=== PATIENT | female | born 1960 | race Caucasian/White ===

== ENCOUNTER → 2018-10-04 | Outpatient (CLI) | payer OTHER | LOC: CAT 08:22 | DX: J84.10 Pulmonary fibrosis, unspecified (principal); J98.4 Other disorders of lung ==

== ENCOUNTER → 2019-02-04 | Outpatient (CLI) | payer OTHER | LOC: CAT 08:28 | DX: J98.4 Other disorders of lung (principal); D17.79 Benign lipomatous neoplasm of other sites; F41.8 Other specified anxiety disorders; F17.210 Nicotine dependence, cigarettes, uncomplicated; Z82.49 Family history of ischemic heart disease and other diseases of the circulatory system; Z83.3 Family history of diabetes mellitus; Z80.1 Family history of malignant neoplasm of trachea, bronchus and lung; Z81.8 Family history of other mental and behavioral disorders; Z88.8 Allergy status to other drugs, medicaments and biological substances ==

== ENCOUNTER → 2021-09-27 | Outpatient (CLI) | payer OTHER | LOC: PET 09:33 | PROVIDERS: ATTEND Internal Medicine | DX: J98.59 Other diseases of mediastinum, not elsewhere classified (principal); J84.10 Pulmonary fibrosis, unspecified; R91.8 Other nonspecific abnormal finding of lung field ==

== ENCOUNTER → 2021-11-05 | Outpatient (CLI) | payer OTHER ==
[~2021-11-05] MED LIST: BRINTELLIX20 MG PO; CLARITIN10 MG PO; CLONAZEPAM 1 MG1 M1 PO; NEXIUM40 MG PO; PROAIR HFA8.5 GM INH; TYLENOL EXTRA500 MG PO; VITAMIN D3125 MC2 PO; WOMEN'S 50 PLU1 EAC1 PO; ZYRTEC10 MG PO
[2021-11-05 13:09] LABS: ABSOLUTE NEUTROPHILS 4.3 thou/uL (1.4-8.2); HEMOGLOBIN 13.3 gm/dL (12.0-15.0); LYMPHOCYTES 39.1 % (24.0-44.0); MCH 30.6 pg (26.0-34.0); MCHC 33.2 g/dL (28.0-37.0); MCV 92.3 fL (80.0-100.0); MONOCYTES 4.2 % (1.0-8.0); PLATELET COUNT 350 thou/uL (150-400); POLYS 54.7 % (36.0-66.0); RBC 4.33 mil/uL (4.20-5.00); RDW 13.8 % (10.5-14.5); WBC 7.9 thou/uL (4.0-11.0)
[2021-11-05 13:21] LABS: URINE BILIRUBIN NEGATIVE (Negative); URINE BLOOD NEGATIVE (Negative); URINE CLARITY CLEAR; URINE COLOR YELLOW; URINE GLUCOSE-RANDOM* NEGATIVE (Negative); URINE KETONES NEGATIVE (Negative); URINE LEUKOCYTES-REFLEX NEGATIVE (Negative); URINE NITRITE-REFLEX NEGATIVE (Negative); URINE PROTEIN (DIPSTICK) NEGATIVE (Negative); URINE SPECIFIC GRAVITY >= 1.030 (1.005-1.035); URINE UROBILINOGEN 0.2 E.U./dl (0.2-1.0)
[2021-11-05 13:24] LABS: APTT 26.7 Seconds (24.5-32.8); INR 1.01
[2021-11-05 13:27] LABS: ALBUMIN 4.2 g/dL (3.4-5.0); CALCIUM 9.7 mg/dL (8.5-10.1); CREATININE 0.8 mg/dL (0.6-1.0); POTASSIUM 3.9 mmol/L (3.5-5.1); TOTAL BILIRUBIN 0.4 mg/dL (0.2-1.0); TOTAL PROTEIN 7.7 g/dL (6.4-8.2)
--- NOTE | 2021-11-05 17:25 | EKG ---
[address] [address] ELECTROCARDIOGRAM REPORT Name: DENISE BUCK Room #: REG GISELA Keita#: [id number] Admission: 11/05/21 Attend Phys: Carson Peace MD Discharge: Date of : 64 Report #: [id number] [facility] Test Date: 2021-11-05 Test Time: 13:02:04 Pat Name: DENISE BUCK Department: Room: Gender: F Photographic Process Worker: MIMA SOLER : 1960 Requested By: Carson Peace Order Number: [id number] MD: Michael Enamorado Measurements Intervals [place] Rate: 60 P: 53 FL: 136 QRS: 62 QRSD: 104 T: 41 QT: 421 QTc: 421 Interpretive Statements Sinus rhythm No significant abnormality No previous ECG available for comparison Electronically Signed On 11-05-2021 17:25:19 DEICER KIT ASSEMBLER by Michael Enamorado [email or web address] <ELECTRONICALLY SIGNED> By: Michael Enamorado MD, [facility] 11/05/21 1725 1302 1302 Michael Enamorado MD, FACC /EPI
== END ==
LOC: PAC 11:22
PROVIDERS: ATTEND Surgery Vascular Surgery
DX: Z01.818 Encounter for other preprocedural examination (principal); R07.9 Chest pain, unspecified

== ENCOUNTER → 2021-11-15 | Outpatient (CLI) | payer OTHER | LOC: LAB 13:53 | PROVIDERS: ATTEND Student in an Organized Health Care Education/Training Program | DX: Z01.812 Encounter for preprocedural laboratory examination (principal); Z20.822 Contact with and (suspected) exposure to COVID-19 ==

== ENCOUNTER 2021-11-18 06:22 | Inpatient (IN) | payer OTHER ==
[2021-11-18] VITALS (12 sets, daily range): BP systolic 90–134; BP diastolic 44–62
[~2021-11-18] VITALS: Ht 167.6 cm; Wt 61.7 kg
--- NOTE | 2021-11-18 15:15 | EKG ---
[place] [address] [facility] [address] [place] [address] ELECTROCARDIOGRAM REPORT Name: DENISE BUCK Room #: 251-P ADM IN M.R.#: [id number] Admission: 11/18/21 Attend Phys: Carson Peace MD Discharge: Date of : 64 Report #: [id number] [facility] Test Date: 2021-11-18 Test Time: 10:38:53 Pat Name: DENISE BUCK Department: Room: 251 Gender: F Facility Coordinator: DIPAK : 1960 Requested By: Mary De Order Number: [id number] : Adebayo Marx Measurements Intervals [place] Rate: 41 P: 54 NE: 164 QRS: 73 QRSD: 93 T: 52 QT: 510 QTc: 422 Interpretive Statements Sinus bradycardia Compared to ECG 11/05/2021 13:02:04 Sinus rhythm no longer present Electronically Signed On 11-18-2021 15:15:23 SENIOR SOFTWARE ANALYST by Adebayo Marx [email or web address] <ELECTRONICALLY SIGNED> By: Adebayo Marx MD, [facility] 11/18/21 1515 1038 Simon Marx MD, FACC /EPI
[2021-11-19] VITALS: BP 91/48
[2021-11-19 01:00] VITALS: BP 91/48
[2021-11-19 04:58] LABS: HEMOGLOBIN 10.4 gm/dL (12.0-15.0); MCH 30.8 pg (26.0-34.0); MCHC 33.4 g/dL (28.0-37.0); MCV 92.1 fL (80.0-100.0); RBC 3.37 mil/uL (4.20-5.00); WBC 10.6 thou/uL (4.0-11.0)
[2021-11-19 05:04] LABS: CALCIUM 8.1 mg/dL (8.5-10.1); CREATININE 0.7 mg/dL (0.6-1.0); POTASSIUM 4.2 mmol/L (3.5-5.1)
[2021-11-19 08:00] VITALS: BP 99/47
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
[2021-11-19 16:20] VITALS: BP 119/63
[2021-11-19 19:50] VITALS: BP 123/74
[2021-11-20 04:30] VITALS: BP 111/67
[2021-11-20 07:30] VITALS: BP 112/62
[2021-11-20 10:18] VITALS: BP 112/62
[2021-11-20 10:20] VITALS: BP 112/62
--- NOTE | 2021-11-22 12:07 | PATH ---
[facility] [address] [place] [address] PATHOLOGY RPT PROCEDURE Name: JORDY HAYES Room #: 212-P DIS IN M.R.#: [id number] Admission: 11/18/21 Date of : 64 Discharge: 11/20/21 Report #: [id number] Path Case #: [id number] [facility] Accession Number: [id number] . 01 Material submitted: . thymus - THYMOMA, SUTURE NATE RT SUPERIOR HORN . 01 Clinical history: . STERNOTOMY (+++) (OPEN HEART) MEDIASTINAL MASS . 02 Diagnosis: Thymus gland (thymectomy): - Thymoma, lymphocyte-rich spindle type, is identified. Resection margins appear free of involvement. . (MATA:kedar; 11/21/2021) QLM 11/21/2021 1620 Local . 02 Comment: This case is seen in consultation with Dr. Carmen Garcia, who is in agreement with this diagnosis on 11/21/2021. . (SWK:mml; 11/21/2021) . 02 Electronically signed: . Roque Sutton MD, Pathologist NPI- [id number] . 01 Gross description: . The specimen is received in formalin, labeled "Jordy Hayes, thymoma" and consists of a fatty, Y-shaped tissue (34 g, 12.1 x 5.5 x 1.9 cm) that is predominantly intact and focally disrupted (6.0 x 2.6 cm). The specimen has been previously oriented with a stitch designating the right superior horn. The disrupted area is inked orange and the remainder of the specimen is inked black. An intact, encapsulated pale-martins to pink mass (2.9 x 2.3 x 1.8 cm) is identified in the left superior horn. Sectioning through the mass reveals diffusely martins, homogenous, well circumscribed, soft cut surfaces. The mass abuts but does not appear to involve the overlying intact surface, the area of disruption and does not display obvious invasion into the attached fat. The attached fat displays a focal, ill-defined suspicious fibrotic area (1.2 x 0.4 x 0.2 cm). Photographs are taken. Pump And Still Operator sections are submitted sequentially from superior to inferior as follows: A1-A6: Mass from superior left horn, represented A7-A9: Fibrotic fat from left superior horn and lower portion of specimen, represented ([facility]; 11/18/2021) [place] [address] PATHOLOGY RPT PROCEDURE Name: JORDY HAYES Room #: 212-P DIS IN M.R.#: [id number] Admission: 11/18/21 Date of : 64 Discharge: 11/20/21 Report #: [id number] Path Case #: [id number] DKA/DKA 11/18/2021 1644 Local . 02 Pathologist provided ICD-10: C37 . 02 CPT . 362266 Specimen Comment: A courtesy copy of this report has been sent to [phone] Specimen Comment: [id number] Specimen Comment: Report sent to / DR PRITCHETT Specimen Comment: A duplicate report has been generated due to demographic updates. Performed at: 01 [facility] [address] [id number] MD Devonte Solares MD Phone: [phone] Performed at: 02 [facility] [address] [id number] MD Roque Sutton MD Phone: [phone]
== END 2021-11-20 12:21 | disposition home or self-care (01) | DRG 168 ==
LOC: TBA 06:22 → 2N 06:22 → ICU 11:27 → PRE 11:29 → 2N 11-19 16:16
PROVIDERS: ADMIT Surgery Vascular Surgery; ATTEND Surgery Vascular Surgery
PROC: 0WBC0ZZ Excision of Mediastinum, Open Approach (ICD-10-PCS; principal; 2021-11-18)
DX: J98.59 Other diseases of mediastinum, not elsewhere classified (principal); J44.9 Chronic obstructive pulmonary disease, unspecified; Z79.899 Other long term (current) drug therapy; Z88.8 Allergy status to other drugs, medicaments and biological substances
CPT/HCPCS: 10078; 10081; 47000; 47001; 47002; 50010; 50101; 50662; 51467; 52259; 52287; 53358; 54118; 56524; 56525; 56526; 56527; 56528; 56531; 57093; 57116; 58585; 58901; 58918; 62110; 62900; 62950; 65020; 65040